=== PATIENT | female | born 1950 | race Caucasian/White ===

== ENCOUNTER 2017-11-10 07:57 | Day surgery (SDC) | payer OTHER ==
[~2017-11-10 07:57] MED LIST: HYOSCYAMINE0.125 M1 SL; OXYC1TAB9 PO
== END 2017-11-10 12:10 | disposition home or self-care (01) ==
LOC: AMB-ENDOS 07:57
DX: K57.30 Diverticulosis of large intestine without perforation or abscess without bleeding (principal)

== ENCOUNTER → 2020-10-02 | Day surgery (SDC) | payer OTHER | END | disposition home or self-care (01) | LOC: ADM 09-26 15:15 → AMB-ENDOS 11:45 | PROVIDERS: ATTEND Surgery | DX: K62.89 Other specified diseases of anus and rectum (principal); Z20.822 Contact with and (suspected) exposure to COVID-19 ==